=== PATIENT | female | born 1985 | race Caucasian/White ===

== ENCOUNTER 2021-09-11 13:01 | Emergency (ER) | payer BC ==
--- NOTE | 2021-09-11 14:46 | RAD REPORT ---
EXAM DESCRIPTION: RAD - Ankle Right 3 View - 09/11/2021 2:35 pm CLINICAL HISTORY: PAIN COMPARISON: None FINDINGS: Right ankle and right foot - multiple projections are submitted Mild soft tissue swelling is seen adjacent to the lateral malleolus. No acute fracture is seen. No fo ot fracture is evident.
--- NOTE | 2021-09-11 14:59 | EDPHYS ---
Physician Documentation [facility] Name: Ramona Dobbins Age: 35 yrs Sex: Female : 1985 Arrival Date: 09/11/2021 Time: 13:05 Bed 17 Private MD: ED Physician Erwin Vazquez HPI: 09/11 14:11 This 35 yrs old Female presents to ER via Wheelchair with complaints of Ankle rn Injury. 14:11 The patient presents with an injury, pain, that is acute. The complaints affect the rn right ankle. Onset: The symptoms/episode began/occurred yesterday. Associated signs and symptoms: Pertinent positives: swelling, Pertinent negatives: calf tenderness, fever, weakness. Modifying factors: The symptoms are alleviated by elevation of extremity, sitting, the symptoms are aggravated by weight bearing, movement. Severity of symptoms: At their worst the symptoms were moderate, in the emergency department the symptoms are unchanged. The patient has not experienced similar symptoms in the past. The patient has not recently seen a physician. Patient reports fall and right ankle injury yesterday. Does not remember details but basically was not wearing proper footwear and fell into a ditch while trying to check the mail. Reports main reason she came was right ankle injury and pain. Improved with elevation and resting affected extremity, worse with walking and movement.. 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 - Social history:: Smoking status: Patient denies any tobacco usage or history of. - Family history:: not pertinent. - Hospitalizations: : No recent hospitalization is reported. ROS: 14:11 Constitutional: Negative for fever, chills, and weight loss, Eyes: Negative for injury, rn pain, redness, and discharge, Neck: Negative for injury, pain, and swelling, Cardiovascular: Negative for chest pain, palpitations, and edema, Respiratory: Negative for shortness of breath, cough, wheezing, and pleuritic chest pain, Abdomen/GI: Negative for abdominal pain, nausea, vomiting, diarrhea, and constipation, Back: Negative for injury and pain, MS/Extremity: Positive for ankle injury and swelling Skin: Negative for injury, rash, and discoloration, Neuro: Negative for headache, weakness, numbness, tingling Exam: 14:11 Constitutional: This is a well developed, well nourished patient who is awake, alert, rn and in no acute distress. Head/Face: Normocephalic, atraumatic. Skin: No open wounds. MS/ Extremity: Pulses equal, no cyanosis. Neurovascular intact. Right lateral malleolus swelling and ecchymosis with tenderness. Swelling extends to mid right foot on lateral side. No open wounds. No tenderness of knee or proximal tib-fib. No tenderness of toes. Mild ecchymosis to right wrist but full range of motion. Neuro: Awake and alert, GCS 15 Vital Signs: 13:11 BP 119 / 63; Pulse 70; Resp 16; Temp 98.1; Pulse Ox 100% ; Weight 104.33 kg; Height 5 vg1 ft. 7 in. (170.18 cm); Pain 4/10; 13:38 BP 118 / 66; Pulse 74; Resp 18; Temp 98.2; Pulse Ox 99% ; sl2 14:30 BP 112 / 64; Pulse 72; Resp 18; Pulse Ox 100% ; sl2 15:30 BP 114 / 62; Pulse 74; Resp 18; Temp 98.4; Pulse Ox 100% ; sl2 13:11 Body Mass Index 36.02 (104.33 kg, 170.18 cm) vg1 MDM: 13:23 Patient medically screened. rn 14:57 Differential diagnosis: fracture, sprain. Data reviewed: vital signs, nurses notes, rn radiologic studies, plain films, and as a result, I will discharge patient. Test interpretation: by ED physician or midlevel provider: plain radiologic studies, X-ray right ankle negative for fracture or dislocation. Counseling: I had a detailed discussion with the patient and/or guardian regarding: the historical points, exam findings, and any diagnostic results supporting the discharge/admit diagnosis, radiology results, the need for outpatient follow up, to return to the emergency department if symptoms worsen or persist or if there are any questions or concerns that arise at home. Special discussion: I discussed with the patient/guardian in detail that at this point there is no indication for admission to the hospital. It is understood, however, that if the symptoms persist or worsen the patient needs to return immediately for re-evaluation. ED course: X-ray right ankle and foot negative for fracture or dislocation. 09/11 13:34 Order name: XRAY Ankle RIGHT 3 view; Complete Time: 14:57 rn 09/11 13:34 Order name: XRAY Foot RIGHT 3 View rn Administered Medications: No medications were administered Disposition Summary: 09/11/21 14:58 Discharge Ordered Location: Home rn Problem: new rn Symptoms: have improved rn Condition: Stable rn Diagnosis - Sprain of unspecified ligament of right ankle, initial encounter rn Followup: rn - With: Private Physician - When: As needed - Reason: Recheck today's complaints, Re-evaluation by your physician Discharge Instructions: - Discharge Summary Sheet rn - Ankle Sprain rn Forms: - Medication Reconciliation Form rn - Thank You Letter rn - Antibiotic title attorney - Prescription Opioid Use rn Signatures: Dispatcher [employer] Erwin Waller MD MD rn Garcia, Victoria RN RN vg1
--- NOTE | 2021-09-11 14:59 | ER ---
Nurse's Notes [facility] Name: Ramona Dobbins Age: 35 yrs Sex: Female : 1985 Arrival Date: 09/11/2021 Time: 13:05 Bed 17 Private MD: Diagnosis: Sprain of unspecified ligament of right ankle, initial encounter Presentation: 09/11 13:11 Chief complaint: Patient states: Last night pt was walking to mailbox and slipped and vg1 fell onto Right side. States Right shoulder, Rights wrist, Right knee and Right ankle pain. Right ankle appears to be swollen. Pt denies hitting head. Coronavirus screen: Vaccine status: Patient reports being unvaccinated. Client denies travel out of the [place] in the last 14 days. Ebola Screen: Patient negative for fever greater than or equal to 101.5 degrees Fahrenheit, and additional compatible Ebola Virus Disease symptoms. Initial Sepsis Screen: Does the patient meet any 2 criteria? No. Patient's initial sepsis screen is negative. Does the patient have a suspected source of infection? No. Patient's initial sepsis screen is negative. Risk Assessment: Do you want to hurt yourself or someone else? Patient reports no desire to harm self or others. Onset of symptoms was September 10, 2021. 13:11 Method Of Arrival: Wheelchair vg1 13:11 Acuity: ADENIKE 4 vg1 Triage Assessment: 13:17 General: Appears in no apparent distress. uncomfortable, Behavior is calm, cooperative. vg1 Pain: Complains of pain in Right shoulder, Right wrist, Right knee, and Right ankle Pain currently is 4 out of 10 on a pain scale. Musculoskeletal: Circulation, motion, and sensation intact. Swelling present in right foot. 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 - Social history:: Smoking status: Patient denies any tobacco usage or history of. - Family history:: not pertinent. - Hospitalizations: : No recent hospitalization is reported. Screenin:38 Abuse screen: Denies threats or abuse. Denies injuries from another. Nutritional sl2 screening: No deficits noted. Tuberculosis screening: No symptoms or risk factors identified. Fall Risk Fall in past 12 months (25 points). No secondary diagnosis (0 pts). No IV (0 pts). Ambulatory Aid- None/Bed Rest/Nurse Assist (0 pts). Gait- Normal/Bed Rest/Wheelchair (0 pts) Mental Status- Oriented to own ability (0 pts). Assessment: 13:29 General: Appears uncomfortable, slender, well groomed, well developed, Behavior is sl2 calm, cooperative, appropriate for age, Reports. Pain: Complains of pain in right foot Pain currently is 5 out of 10 on a pain scale. at worst was 10 out of 10 on a pain scale. Quality of pain is described as aching, Pain began suddenly, Is continuous, Alleviated by rest, Aggravated by increased activity, repositioning, weight bearing. Pain: Complains of pain in Right shoulder, right wrist, right knee, right ankle. Neuro: No deficits noted. Level of Consciousness is awake, alert, obeys commands, Oriented to person, place, time, situation, Appropriate for age Continuous Drier Operator are equal bilaterally Moves all extremities. Full function. Neuro: Gait is limping secondary to right ankle injury. Speech is normal. Cardiovascular: No deficits noted. Respiratory: No deficits noted. Airway is patent Trachea midline Respiratory effort is even, unlabored, Respiratory pattern is regular, symmetrical. GI: No deficits noted. No signs and/or symptoms were reported involving the gastrointestinal system. : No deficits noted. No signs and/or symptoms were reported regarding the genitourinary system. EENT: No deficits noted. No signs and/or symptoms were reported regarding the EENT system. Derm: No deficits noted. No signs and/or symptoms reported regarding the dermatologic system. Musculoskeletal: Swelling present in right ankle Reports Pain right upper and lower extremities in the areas of the shoulder, wrist, knee and ankle. Vital Signs: 13:11 BP 119 / 63; Pulse 70; Resp 16; Temp 98.1; Pulse Ox 100% ; Weight 104.33 kg; Height 5 vg1 ft. 7 in. (170.18 cm); Pain 4/10; 13:38 BP 118 / 66; Pulse 74; Resp 18; Temp 98.2; Pulse Ox 99% ; sl2 14:30 BP 112 / 64; Pulse 72; Resp 18; Pulse Ox 100% ; sl2 15:30 BP 114 / 62; Pulse 74; Resp 18; Temp 98.4; Pulse Ox 100% ; sl2 13:11 Body Mass Index 36.02 (104.33 kg, 170.18 cm) vg1 ED Course: 13:05 Patient arrived in ED. mr 13:05 Lorenzo Lee PA is PHCP. [facility] 13:06 Erwin Vazquez MD is Attending Physician. [facility] 13:15 Triage completed. vg1 13:17 Arm band placed on. vg1 13:24 Chelsea Soto, ROSALIND is Primary Nurse. sl2 13:38 Patient has correct armband on for positive identification. sl2 13:38 No provider procedures requiring assistance completed. Patient did not have IV access sl2 during this emergency room visit. 14:35 XRAY Ankle RIGHT 3 view In Process Unspecified. EDMS 14:35 XRAY Foot RIGHT 3 View In Process Unspecified. EDMS Administered Medications: No medications were administered Outcome: 14:58 Discharge ordered by . rn 15:43 Discharged to home via wheelchair, with family. sl2 15:43 Condition: stable 15:43 Discharge instructions given to patient, Instructed on discharge instructions, follow up and referral plans. medication usage, Demonstrated understanding of instructions, follow-up care, medications. 15:44 Patient left the ED. sl2 Signatures: Dispatcher [employer] EDMS Lorenzo Lee PA PA peggy GuerreroaMadelaine mr Erwin Vazquez MD MD rn Garcia, Victoria RN RN [facility] Chelsea Soto, ROSALIND RN sl2
[2021-09-11 16:00] VITALS: BP 118/66; TEMP 98.2; O2SAT 99
== END 2021-09-11 15:44 | disposition home or self-care (01) ==
LOC: ER 13:01
DX: S93.401A Sprain of unspecified ligament of right ankle, initial encounter (principal); W19.XXXA Unspecified fall, initial encounter; Y93.89 Activity, other specified; Z88.0 Allergy status to penicillin; Z88.5 Allergy status to narcotic agent; Z91.040 Latex allergy status
CPT/HCPCS: 99283

== ENCOUNTER 2023-02-15 13:12 | Emergency (ER) | payer BC ==
[2023-02-15 14:11] LABS: Specific Gravity 1.025 (1.005-1.030)
[2023-02-15 14:14] LABS: Specific Gravity 1.011 (1.005-1.030); Urine Bacteria None Seen /HPF (<20); Urine Bilirubin NEGATIVE (Negative); Urine Blood Negative (Negative); Urine Clarity Extremely Turbid (Clear); Urine Color Light-Orange (Yellow); Urine Glucose NEGATIVE (Negative); Urine Mucus Slight /HPF (None Seen); Urine Protein NEGATIVE (Negative); Urine Urobilinogen Normal (Normal)
--- NOTE | 2023-02-15 14:30 | RAD REPORT ---
EXAM DESCRIPTION: CTStone Protocol - 02/15/2023 2:18 pm CLINICAL HISTORY: KIDNEY STONES COMPARISON: Abdomen Pelvis W Contrast dated 01/17/2018 TECHNIQUE: CT of the abdomen and pelvis was performed. All CT scans are performed using dose optimization technique as appropriate and may include automated exposure control or mA/KV adjustment according to patient size. FINDINGS: Lower chest: No acute abnormality. Liver: No acute abnormality or suspicious lesions. Biliary: Cholecystectomy. Stomach: No significant focal abnormality. Duodenum: No significant focal abnormality. Pancreas: No significant abnormality. Spleen: No significant abnormality. Adrenal: No suspicious lesions. Kidney/ureter: No hydronephrosis. Punctate bilateral renal calculi. No ureteral calculi identified. Retroperitoneum: No retroperitoneal adenopathy. Vascular: No aneurysm. Bowel: No significant focal abnormality. Normal appendix Peritoneum: No ascites or free air. Small fat containing umbilical hernia. Bladder: Mild circumferential bladder wall thickening. Reproductive: No adnexal masses. Bones: No acute fracture. Other: n/a IMPRESSION: Nonobstructive bilateral nephrolithiasis. No ureteral calculi. Circumferential bladder w all thickening which could indicate cystitis. Normal appendix.
[2023-02-15] MEDS ORDERED: NA CHLORIDE 0.9% 1,000 ML ONE (14:34)
[2023-02-15] MEDS ORDERED: KETOROLAC 30 MG/ML INJ ONE (14:34)
[2023-02-15] MEDS ORDERED: ONDANSETRON 4 MG/2 ML VIAL ONE (14:34)
[2023-02-15 14:49] LABS: Absolute Lymphocytes (CBC) 2.5 K/uL (0.7-4.9); Hematocrit 39.4 % (36.0-45.0); Lymphocytes % 36.2 % (15.3-44.8); MCV 92.9 fL (80-100); RBC Red Blood Cell Count 4.24 M/uL (3.86-4.86)
[2023-02-15 15:09] LABS: Albumin 3.8 g/dL (3.4-5.0); Bilirubin Total 0.2 mg/dL (0.2-1.0); Potassium 3.3 mEq/L (3.5-5.1); Protein, Total 7.1 g/dL (6.4-8.2)
[2023-02-15] MEDS ORDERED: FENTANYL CITR 100 MCG/2 ML ONE (16:25)
--- NOTE | 2023-02-15 16:54 | EDPHYS ---
Physician Documentation [facility] Name: Ramona Dobbins Age: 37 yrs Sex: Female : 1985 Arrival Date: 02/15/2023 Time: 13:12 Bed 16 Private MD: ED Physician Erwin Vazquez HPI: 02/15 16:58 This 37 yrs old Female presents to ER via Ambulatory with complaints of Low Back Pain. kb 16:59 The patient complains of pain in the right flank. The pain does not radiate. Onset: The kb symptoms/episode began/occurred last week. Modifying factors: The symptoms are alleviated by nothing. the symptoms are aggravated by nothing. Associated signs and symptoms: Pertinent positives: nausea. Severity of pain: At its worst the pain was moderate in the emergency department the pain is unchanged. The patient has experienced similar episodes in the past, several times. The patient has not recently seen a physician. 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 - Social history:: Smoking status: Patient denies any tobacco usage or history of. ROS: 16:57 Constitutional: Negative for fever, chills, and weight loss. kb 16:57 Back: Positive for flank pain, on the right. kb 16:57 All other systems are negative. Exam: 16:57 Constitutional: This is a well developed, well nourished patient who is awake, alert, kb and in no acute distress. Head/Face: Normocephalic, atraumatic. ENT: Moist Mucous membranes Cardiovascular: Regular rate and rhythm with a normal S1 and S2. No gallops, murmurs, or rubs. No pulse deficits. Respiratory: Respirations even and unlabored. No increased work of breathing. Talking in full sentences Abdomen/GI: Soft, non-tender. No distention Skin: Warm, dry with normal turgor. Normal color. MS/ Extremity: Pulses equal, no cyanosis. Neurovascular intact. Full, normal range of motion. Neuro: Awake and alert, GCS 15, oriented to person, place, time, and situation. Moves all extremities. Normal gait. 16:57 Back: pain, that is mild, that is moderate, of the right low back. Vital Signs: 13:36 BP 129 / 83; Pulse 75; Resp 17; Temp 98.9; Pulse Ox 100% ; Weight 93.89 kg; Height 5 ap3 ft. 7 in. ; Pain 6/10; 15:25 BP 115 / 63; Pulse 54; Resp 16 S; Pulse Ox 99% on R/A; kc6 16:10 BP 121 / 61; kc6 13:36 Body Mass Index 32.42 (93.89 kg, 170.18 cm) ap3 13:36 Pain Scale: Adult ap3 MDM: 13:37 Patient medically screened. kb 16:58 Differential diagnosis: strain, fracture, sciatica, UTI, kidney stone. Data reviewed: kb vital signs, nurses notes. Counseling: I had a detailed discussion with the patient and/or guardian regarding: the historical points, exam findings, and any diagnostic results supporting the discharge/admit diagnosis, lab results, radiology results, the need for outpatient follow up, a family practitioner, a urologist, to return to the emergency department if symptoms worsen or persist or if there are any questions or concerns that arise at home. 02/15 13:37 Order name: Test, Urine; Complete Time: 14:15 kb 02/15 13:37 Order name: Urinalysis w/ reflexes; Complete Time: 14:15 kb 02/15 14:08 Order name: CBC with Diff; Complete Time: 14:53 kb 02/15 14:08 Order name: CMP; Complete Time: 15:11 kb 02/15 14:08 Order name: Lipase; Complete Time: 15:11 kb 02/15 14:08 Order name: CT Stone Protocol; Complete Time: 14:31 kb 02/15 14:08 Order name: IV Saline Lock; Complete Time: 14:45 kb 02/15 14:08 Order name: Labs collected and sent; Complete Time: 14:45 kb Administered Medications: 14:45 Drug: NS 0.9% IV 1000 ml Route: IV; Rate: 1 bolus; Site: left antecubital; kc6 16:17 Follow up: Response: No adverse reaction; IV Status: Completed infusion; IV Intake: kc6 1000ml 14:45 Drug: TORadol - Ketorolac IVP 15 mg Route: IVP; Site: left antecubital; kc6 16:17 Follow up: Response: No adverse reaction; Pain is unchanged, physician notified kc6 14:45 Drug: Ondansetron IVP 4 mg Route: IVP; Site: left antecubital; kc6 16:17 Follow up: Response: No adverse reaction kc6 16:26 Drug: fentaNYL (PF) IVP 25 mcg Route: IVP; Site: left antecubital; kc6 Disposition: 18:14 Co-signature as Attending Physician, Erwin Vazquez MD I reviewed the patient's care rn provided by the Advanced Practice Provider and agree with the diagnosis and treatment plan. Disposition Summary: 02/15/23 16:53 Discharge Ordered Location: Home kb Condition: Stable kb Diagnosis - Low back pain kb Followup: kb - With: Emergency Department - When: As needed - Reason: Worsening of condition Followup: kb - With: Private Physician - When: 2 - 3 days - Reason: Recheck today's complaints, Continuance of care, Re-evaluation by your physician Discharge Instructions: - Discharge Summary Sheet kb - Musculoskeletal Pain kb - Kidney Stones, [id number] kb - Abdominal Pain, Adult, [id number] kb Forms: - Medication Reconciliation Form kb - Thank You Letter kb - Antibiotic Education kb - Prescription Opioid Use kb Prescriptions: - ondansetron 4 mg Oral Tablet,disintegrating - take 1 tablet by ORAL route every 6 hours As needed as needed for nausea and kb vomiting; 10 tablet; Refills: 0, Product Selection Permitted - Diclofenac Sodium 75 mg Oral tablet,delayed release (DR/EC) - take 1 tablet by ORAL route 2 times per day As needed; 30 tablet; Refills: 0, kb Product Selection Permitted Signatures: Dispatcher [employer] Virginia Rushing, MAKENNA BARAJAS-Erwin Krause MD MD rn Prokisch, Amanda, RN RN ap3 Erinn Christopher RN RN kc6
--- NOTE | 2023-02-15 16:54 | ER ---
Nurse's Notes [facility] Name: Ramona Dobbins Age: 37 yrs Sex: Female : 1985 Arrival Date: 02/15/2023 Time: 13:12 Bed 16 Private MD: Diagnosis: Low back pain Presentation: 02/15 13:36 Chief complaint: Patient states: she is having right lower flank pain since last week. ap3 patient reports her pain as a 6/10 on the pain scale. Coronavirus screen: At this time, the client does not indicate any symptoms associated with coronavirus-19. Ebola Screen: No symptoms or risks identified at this time. Initial Sepsis Screen: Does the patient meet any 2 criteria? No. Patient's initial sepsis screen is negative. Does the patient have a suspected source of infection? No. Patient's initial sepsis screen is negative. Risk Assessment: Do you want to hurt yourself or someone else? Patient reports no desire to harm self or others. Onset of symptoms was February 08, 2023. 13:36 Method Of Arrival: Ambulatory ap3 13:36 Acuity: ADENIKE 3 ap3 Triage Assessment: 13:38 General: Appears in no apparent distress. Behavior is calm, cooperative, appropriate ap3 for age. Pain: Complains of pain in right low back Pain currently is 6 out of 10 on a pain scale. Pain began gradually, over the last week. Neuro: Level of Consciousness is awake, alert, obeys commands, Oriented to person, place, time, situation. Cardiovascular: Patient's skin is warm and dry. Respiratory: Airway is patent Respiratory effort is even, unlabored, Respiratory pattern is regular, symmetrical. : Reports pain in right flank(s). 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 - Social history:: Smoking status: Patient denies any tobacco usage or history of. Screenin:39 [facility] ED Fall Risk Assessment (Adult) History of falling in the last 3 months, ap3 including since admission No falls in past 3 months (0 pts). Abuse screen: Denies threats or abuse. Nutritional screening: No deficits noted. Tuberculosis screening: No symptoms or risk factors identified. Assessment: 14:01 General: Appears in no apparent distress. comfortable, Behavior is calm, cooperative, kc6 appropriate for age. Pain: Complains of pain in right low back. Neuro: Frey Agitation-Sedation Scale (RASS): 0 - Alert and Calm Level of Consciousness is awake, alert, obeys commands, Oriented to person, place, time, situation, Appropriate for age. Cardiovascular: Capillary refill < 3 seconds. Respiratory: Airway is patent Trachea midline Respiratory effort is even, unlabored, Respiratory pattern is regular, symmetrical. GI: No signs and/or symptoms were reported involving the gastrointestinal system. : Urine is clear, cloudy. EENT: No signs and/or symptoms were reported regarding the EENT system. Derm: No signs and/or symptoms reported regarding the dermatologic system. Skin is intact, Skin is pink, warm \T\ dry. Musculoskeletal: No signs and/or symptoms reported regarding the musculoskeletal system. Circulation, motion, and sensation intact. Capillary refill < 3 seconds, Range of motion: intact in all extremities. 15:01 Reassessment: Patient appears in no apparent distress at this time. No changes from kc6 previously documented assessment. Patient and/or family updated on plan of care and expected duration. Pain level reassessed. Patient is alert, oriented x 3, equal unlabored respirations, skin warm/dry/pink. 16:01 Reassessment: Patient appears in no apparent distress at this time. No changes from kc6 previously documented assessment. Patient and/or family updated on plan of care and expected duration. Pain level reassessed. Patient is alert, oriented x 3, equal unlabored respirations, skin warm/dry/pink. Vital Signs: 13:36 BP 129 / 83; Pulse 75; Resp 17; Temp 98.9; Pulse Ox 100% ; Weight 93.89 kg; Height 5 ap3 ft. 7 in. ; Pain 6/10; 15:25 BP 115 / 63; Pulse 54; Resp 16 S; Pulse Ox 99% on R/A; kc6 16:10 BP 121 / 61; kc6 13:36 Body Mass Index 32.42 (93.89 kg, 170.18 cm) ap3 13:36 Pain Scale: Adult ap3 ED Course: 13:15 Patient arrived in ED. rg4 13:22 Virginia Shen [facility] kb 13:22 Erwin Vazquez MD is Attending Physician. kb 13:38 Triage completed. ap3 13:39 Arm band placed on right wrist. ap3 13:43 Erinn Christopher, RN is Primary Nurse. kc6 14:01 Patient has correct armband on for positive identification. Bed in low position. Call kc6 light in reach. Side rails up X 1. 14:20 CT Stone Protocol In Process Unspecified. EDMS Administered Medications: 14:45 Drug: NS 0.9% IV 1000 ml Route: IV; Rate: 1 bolus; Site: left antecubital; kc6 16:17 Follow up: Response: No adverse reaction; IV Status: Completed infusion; IV Intake: kc6 1000ml 14:45 Drug: TORadol - Ketorolac IVP 15 mg Route: IVP; Site: left antecubital; kc6 16:17 Follow up: Response: No adverse reaction; Pain is unchanged, physician notified kc6 14:45 Drug: Ondansetron IVP 4 mg Route: IVP; Site: left antecubital; kc6 16:17 Follow up: Response: No adverse reaction kc6 16:26 Drug: fentaNYL (PF) IVP 25 mcg Route: IVP; Site: left antecubital; kc6 Intake: 16:17 IV: 1000ml; Total: 1000ml. kc6 Outcome: 16:53 Discharge ordered by MD. kb 17:18 Patient left the ED. kc6 Signatures: Dispatcher [employer] EDMS Virginia Shen FNP-C FNP-Bernadette Luna rg4 Jocelyn Syed RN RN ap3 Erinn Christopher, ROSALIND RN kc6
[2023-02-15 17:23] VITALS: TEMP 98.9
[2023-02-15 17:25] VITALS: O2SAT 99
[2023-02-15 17:26] VITALS: BP 121/61
== END 2023-02-15 17:18 | disposition home or self-care (01) ==
LOC: ER 13:12
DX: M54.50 Low back pain, unspecified (principal); Z88.0 Allergy status to penicillin; Z88.5 Allergy status to narcotic agent; Z91.040 Latex allergy status; Z91.048 Other nonmedicinal substance allergy status
CPT/HCPCS: 96361; 85025; 81001; 36415; 81025; 83690; 80053; 76377; 74176; 96375; 96374; 99284; J3010; J2405; J7030

== ENCOUNTER 2024-11-26 22:02 | Emergency (ER) | payer BC ==
[2024-11-26] MEDS ORDERED: ONDANSETRON 4 MG/2 ML VIAL ONE (23:38)
[2024-11-26] MEDS ORDERED: KETOROLAC 30 MG/ML INJ ONE (23:38)
[2024-11-26] MEDS ORDERED: NA CHLORIDE 0.9% 1,000 ML ONE (23:39)
[2024-11-26 23:45] LABS: Absolute Basophils 0.1 K/uL (0-0.5); Absolute Eosinophils 0.6 K/uL (0-0.5); Absolute Monocytes 0.5 K/uL (0.1-1.3); Absolute Neutrophil 3.2 K/uL (1.8-8.0); Eosinophils % 7.8 % (0-4.4); Hematocrit 38.4 % (36.0-45.0); Lymphocytes % 41.1 % (15.3-44.8); MCHC 33.9 g/dL (32.0-36.0); MCV 88.4 fL (80-100); MPV 8.5 fL (7.6-11.3); Monocytes % 7.1 % (3.3-12.3); Nucleated Red Blood Cells % 0.1 % (0-0); Platelets 324 thou/uL (152-406); RBC Red Blood Cell Count 4.35 M/uL (3.86-4.86); Red Cell Distribution Width 14.7 % (12.1-15.2)
[2024-11-26 23:47] LABS: Specific Gravity 1.009 (1.005-1.030)
[2024-11-26 23:51] LABS: Specific Gravity 1.009 (1.005-1.030); Sqamous Epithelial <5 /HPF (None Seen); Urine Bacteria <20 /HPF (<20); Urine Bilirubin NEGATIVE (Negative); Urine Blood Negative (Negative); Urine Clarity Turbid (Clear); Urine Color Colorless (Yellow); Urine Crystals Unidentified Few /HPF (None Seen); Urine Culture Reflex Order NOT NEEDED; Urine Glucose NEGATIVE (Negative); Urine Ketones NEGATIVE (Negative); Urine Microscopic Reflex YN ORDER UMIC; Urine Nitrite NEGATIVE (Negative); Urine Protein NEGATIVE (Negative); Urine RBC <5 /HPF (None Seen); Urine Urobilinogen Normal (Normal); Urine WBC <5 /HPF (<5)
[2024-11-27] LABS: Albumin 3.6 g/dL (3.4-5.0); Albumin/Globulin Ratio 1.1 (1.1-1.8); Anion Gap 6.4 mEq/L (5.0-15.0); Bilirubin Total 0.2 mg/dL (0.2-1.0); Globulin 3.4 g/dL (2.3-3.5); Potassium 3.4 mEq/L (3.5-5.1)
--- NOTE | 2024-11-27 02:30 | RAD REPORT ---
EXAM: CT Abdomen and Pelvis Without Intravenous Contrast CLINICAL HISTORY: The patient is 38 years old and is Female; FLANK PAIN TECHNIQUE: Axial computed tomography images of the abdomen and pelvis without intravenous contrast. Sagittal and coronal reformatted images were created and reviewed. This CT exam was performed using one or more of the following dose reduction techniques: automated exposure control, adjustment of the m A and/or kV according to patient size, and/or use of iterative reconstruction technique. COMPARISON: February 15, 2023. FINDINGS: LUNG BASES: Unremarkable. No mass. No consolidation. ABDOMEN: LIVER: Homogeneous without focal mass. GALLBLADDER AND BILE DUCTS: Surgical clips are present in the right upper quadrant, consistent wi th previous cholecystectomy. PANCREAS: Unremarkable. No ductal dilation. SPLEEN: Unremarkable. ADRENALS: Unremarkable. No mass. KIDNEYS AND URETERS: Punctate right intrarenal calcification is present. Punctate left intrarenal calcification is present. There is no hydronephrosis or hydroureter of either kidney. No obstructing renal or ureteral calculus is seen. STOMACH AND BOWEL: The stomach is distended with food contents. The small bowel is normal in thor alonso. Stool is present throughout the colon. There is no mucosal thickening or evidence of obstruction. PELVIS: APPENDIX: The appendix is normal in caliber without surrounding inflammation. BLADDER: The bladder is well distended. No stones. REPRODUCTIVE: Unremarkable as visualized. ABDOMEN and PELVIS: INTRAPERITONEAL SPACE: Unremarkable. No free air. No significant fluid collection. BONES/JOINTS: No acute fracture. SOFT TISSUES: The soft tissues are normal. VASCULATURE: Unremarkable. No abdominal aortic aneurysm. LYMPH NODES: Unremarkable. No enlarged lymph nodes. IMPRESSION: Bilateral nephrolithiasis without obstruction. Electronically signed by: Heather Herrera MD 11/27/2024 02:16 AM [facility] Due to temporary technical issues with the PACS/Lingoing reporting system, reports are being monica d by the in-house radiologist without review as a courtesy to ensure prompt reporting the interpreting radiologist is fully responsible for the content of the report. Transcribed Date/Time: 11/27/2024 2:30 AM
--- NOTE | 2024-11-27 02:35 | EDPHYS ---
Physician Documentation [facility] Name: Ramona Dobbins Age: 38 yrs Sex: Female : 1985 Arrival Date: 11/26/2024 Time: 22:02 Bed DX1 Private MD: ED Physician Jarred Ga HPI: 11/26 22:13 This 38 yrs old Female presents to ER via Unassigned with complaints of Urinary kb Retention, Low Back Pain. 22:13 Pt is a 38 year old female who presents for left flank pain that started 5 days ago and kb got worse yesterday. Reports history of kidney stones and this feels similar. Reports decreased urination and pain with urination. Denies fever, nausea, vomiting. 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 - Infectious Disease History:: Denies. - Social history:: Smoking status: Patient denies any tobacco usage or history of. Patient/guardian denies using alcohol, street drugs. ROS: 22:15 Constitutional: As per HPI kb Exam: 22:15 Constitutional: This is a well developed, well nourished patient who is awake, alert, kb and in no acute distress. Head/Face: Normocephalic, atraumatic. ENT: Moist Mucous membranes Cardiovascular: Regular rate Respiratory: Respirations even and unlabored. No increased work of breathing. Talking in full sentences Skin: Warm, dry with normal turgor. Normal color. MS/ Extremity: Pulses equal, no cyanosis. Neurovascular intact. Full, normal range of motion. Neuro: Awake and alert, GCS 15, oriented to person, place, time, and situation. 22:15 Abdomen/GI: Inspection: abdomen appears normal, Palpation: soft, in all quadrants, mild abdominal tenderness, in the left upper quadrant, 22:15 Back: CVA tenderness, that is mild, is noted on the right, 22:16 Back: CVA tenderness, that is moderate, is noted on the left, kb Vital Signs: 22:22 BP 124 / 90; Pulse 80; Resp 17 S; Temp 97.5(O); Pulse Ox 99% on R/A; Weight 90.72 kg lg3 (R); Height 5 ft. 7 in. (R); Pain 4/10; 11/27 02:37 BP 145 / 100; Pulse 60; Resp 15; Temp 98; Pulse Ox 100% ; rk3 11/26 22:22 Body Mass Index 31.32 (90.72 kg, 170.18 cm) lg3 11/26 22:22 Pain Scale: Adult lg3 MDM: 11/26 22:10 Medical Screening Exam initiated kb 11/27 00:52 Data reviewed: vital signs, nurses notes. Transition of care: After a detail discussion kb of the patient's case, care is transferred to Jarred Ga MD. 02:24 ED course: COMPARISON: February 15, 2023. FINDINGS: LUNG BASES: Unremarkable. No mass. No sp4 consolidation. ABDOMEN: LIVER: Homogeneous without focal mass. GALLBLADDER AND BILE DUCTS: Surgical clips are present in the right upper quadrant, consistent with previous cholecystectomy. PANCREAS: Unremarkable. No ductal dilation. SPLEEN: Unremarkable. ADRENALS: Unremarkable. No mass. KIDNEYS AND URETERS: Punctate right intrarenal calcification is present. Punctate left intrarenal calcification is present. There is no hydronephrosis or hydroureter of either kidney. No obstructing renal or ureteral calculus is seen. STOMACH AND BOWEL: The stomach is distended with food contents. The small bowel is normal in caliber. Stool is present throughout the colon. There is no mucosal thickening or evidence of obstruction. PELVIS: APPENDIX: The appendix is normal in caliber without surrounding inflammation. BLADDER: The bladder is well distended. No stones. REPRODUCTIVE: Unremarkable as visualized. ABDOMEN and PELVIS: INTRAPERITONEAL SPACE: Unremarkable. No free air. No significant fluid collection. BONES/JOINTS: No acute fracture. SOFT TISSUES: The soft tissues are normal. VASCULATURE: Unremarkable. No abdominal aortic aneurysm. LYMPH NODES: Unremarkable. No enlarged lymph nodes. IMPRESSION: Bilateral nephrolithiasis without obstruction. Electronically signed by: Heather Herrera MD 11/27/2024 02:16 AM . 02:32 Differential diagnosis: arthritis, strain, Herniated disc UTI, Kidney Stone. sp4 Consideration of Admission/Observation Escalation of care including admission/observation considered. ED course: CT reveals punctate nephrolithiasis without active ureteral stone. We have explained the patient in details no sign of acute kidney injury no sign of acute ureterolithiasis. Patient is stable for discharge home with as needed Naprosyn and Robaxin. . 11/26 22:18 Order name: CBC with Diff; Complete Time: 00:13 kb 11/26 22:18 Order name: CMP; Complete Time: 00:13 kb 11/26 22:18 Order name: Lipase; Complete Time: 00:13 kb 11/26 22:18 Order name: Test, Urine; Complete Time: 00:13 kb 11/26 22:18 Order name: Urinalysis w/ reflexes; Complete Time: 00:13 kb 11/26 22:18 Order name: CT Stone Protocol kb 11/26 22:18 Order name: IV Saline Lock; Complete Time: 23:18 kb 11/26 22:18 Order name: Labs collected and sent; Complete Time: 23:18 kb Administered Medications: 11/26 23:50 Drug: TORadol - Ketorolac IVP 15 mg IVP once Route: IVP; Site: left antecubital; lg3 11/27 02:22 Follow up: Response: No adverse reaction; Marked relief of symptoms lg3 11/26 23:50 Drug: Ondansetron IVP 4 mg IVP once; over 2 minutes Route: IVP; Site: left antecubital; lg3 11/27 02:22 Follow up: Response: No adverse reaction 3 11/26 23:50 Drug: NS 0.9% IV 1000 ml IV at 1 bolus Per protocol; to be given as a bolus over 60 lg3 minutes Route: IV; Rate: 1 bolus; Site: left antecubital; 11/27 02:22 Follow up: Response: No adverse reaction; IV Status: Completed infusion; IV Intake: lg3 1000ml Disposition: 21:49 Co-signature as Attending Physician, Jarred Ga MD I agree with the assessment sp4 and plan of care. I reviewed the patient's care provided by Advanced Practice Provider \T\ agree w/ the diagnosis \T\ care plan. I personally saw the pt \T\ performed a substantive portion of the visit, incldng all aspects of the (History/Exam/Medical Decision Making). Disposition Summary: 11/27/24 02:35 Discharge Ordered Notes: Location: Home sp4 Problem: new sp4 Symptoms: have improved sp4 Condition: Stable sp4 Diagnosis - Acute left lower back pain, acute UTI, sp4 Followup: sp4 - With: Private Physician - When: 7 - 10 days - Reason: Recheck today's complaints Discharge Instructions: - Discharge Summary Sheet sp4 - Urinary Tract Infection, Adult, [id number] sp4 Forms: - Patient Portal Instructions sp4 Prescriptions: - naproxen 500 mg Oral tablet - take 1 tablet ORAL route every 12 hours as needed for pain; 50 tablet; Refills: sp4 0, Product Selection Permitted - Cephalexin 250 mg Oral Capsule - take 1 capsule ORAL route every 12 hours for 10 days; 20 capsule; Refills: 0, sp4 Product Selection Permitted - methocarbamol 750 mg Oral tablet - take 1 tablet ORAL route 4 times per day for 2 days PRN back pain; 60 tablet; sp4 Refills: 0, Product Selection Permitted Signatures: Dispatcher [employer] Virginia Rushing, WEB CONSULTANT-C WEB CONSULTANT-Michelle Bhardwaj RN RN lg3 Jarred Ga MD MD sp4 Corrections: (The following items were deleted from the chart) 11/26 22:18 22:18 Stone Protocol+CT.RAD.BRZ ordered. PARVEENVT PARVEENVT 22:24 22:23 Home Meds: Remicade Infusions; lg3 lg3
--- NOTE | 2024-11-27 02:35 | ER ---
Nurse's Notes [facility] Name: Ramona Dobbins Age: 38 yrs Sex: Female : 1985 Arrival Date: 11/26/2024 Time: 22:02 Bed DX1 Private MD: Diagnosis: Acute left lower back pain, acute UTI, Presentation: 11/26 22:22 Chief complaint: Patient states: my kidneys hurt. onset monday. Coronavirus screen: lg3 Client denies travel out of the [place] in the last 14 days. At this time, the client does not indicate any symptoms associated with coronavirus-19. Ebola Screen: No symptoms or risks identified at this time. Initial Sepsis Screen: Does the patient meet any 2 criteria? No. Patient's initial sepsis screen is negative. Does the patient have a suspected source of infection? No. Patient's initial sepsis screen is negative. Risk Assessment: Do you want to hurt yourself or someone else? Patient reports no desire to harm self or others. Onset of symptoms was November 21, 2024. 22:22 Method Of Arrival: Ambulatory lg3 22:22 Acuity: ADENIKE 3 lg3 Triage Assessment: 22:23 General: Appears in no apparent distress. uncomfortable, Behavior is calm, cooperative. lg3 Pain: Complains of pain in back. EENT: No deficits noted. No signs and/or symptoms were reported regarding the EENT system. Neuro: No deficits noted. Frey Agitation-Sedation Scale (RASS): 0 - Alert and Calm Level of Consciousness is awake, alert, obeys commands, Oriented to person, place, time, situation. Cardiovascular: No deficits noted. Denies chest pain, shortness of breath, Capillary refill < 3 seconds Clubbing of nail beds is absent JVD is absent Patient's skin is warm and dry. Respiratory: No deficits noted. Airway is patent Respiratory effort is even, unlabored, Respiratory pattern is regular, symmetrical. GI: No deficits noted. No signs and/or symptoms were reported involving the gastrointestinal system. Abdomen is round non-distended. : Reports inability to void, pain in lower back. Derm: No deficits noted. No signs and/or symptoms reported regarding the dermatologic system. Skin is intact, is healthy with good turgor, Skin is dry, Skin is normal, Skin temperature is warm. Musculoskeletal: No deficits noted. Circulation, motion, and sensation intact. Range of motion: intact in all extremities. 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 - Infectious Disease History:: Denies. - Social history:: Smoking status: Patient denies any tobacco usage or history of. Patient/guardian denies using alcohol, street drugs. Screenin:26 [facility] ED Fall Risk Assessment (Adult) History of falling in the last 3 months, lg3 including since admission No falls in past 3 months (0 pts) Confusion or Disorientation No (0 pts) Intoxicated or Sedated No (0 pts) Impaired Gait No (0 pts) Mobility Assist Device Used No (0 pt) Altered Elimination No (0 pt) Score/Fall Risk Level 0 - 2 = Low Risk Oriented to surroundings, Maintained a safe environment, Educated pt \T\ family on fall prevention, incl call for assistance when getting out of bed, Assessed \T\ reinforced patient's understanding of fall precautions. Abuse screen: Denies threats or abuse. Denies injuries from another. Nutritional screening: No deficits noted. Tuberculosis screening: No symptoms or risk factors identified. Assessment: 22:26 General: see triage assessment. lg3 11/27 00:00 Reassessment: Patient appears in no apparent distress at this time. No changes from lg3 previously documented assessment. Patient and/or family updated on plan of care and expected duration. Pain level reassessed. Patient is alert, oriented x 3, equal unlabored respirations, skin warm/dry/pink. 02:21 Reassessment: Patient appears in no apparent distress at this time. No changes from lg3 previously documented assessment. Patient and/or family updated on plan of care and expected duration. Pain level reassessed. Patient is alert, oriented x 3, equal unlabored respirations, skin warm/dry/pink. Patient states symptoms have improved. Vital Signs: 11/26 22:22 BP 124 / 90; Pulse 80; Resp 17 S; Temp 97.5(O); Pulse Ox 99% on R/A; Weight 90.72 kg lg3 (R); Height 5 ft. 7 in. (R); Pain 4/10; 02 02:37 BP 145 / 100; Pulse 60; Resp 15; Temp 98; Pulse Ox 100% ; rk3 11/26 22:22 Body Mass Index 31.32 (90.72 kg, 170.18 cm) lg3 02 22:22 Pain Scale: Adult 3 ED Course: 11/26 22:05 Patient arrived in ED. jj6 22:09 Virginia Shen [facility]C [facility] kb 22:09 Jarred Ga MD is Attending Physician. kb 22:23 Triage completed. lg3 22:23 Arm band placed on right wrist. lg3 22:26 Patient taken to lobby, ambulatory, steady gait. lg3 22:26 Patient has correct armband on for positive identification. lg3 23:13 Inserted saline lock: 20 gauge in right antecubital area, using aseptic technique. rv1 Blood collected. Flushed with 10 mL NS. 23:13 Initial lab(s) drawn, by me, sent to lab. Urine collected: clean catch specimen, clear. rv1 23:18 CBC with Diff Sent. rv1 23:18 CMP Sent. rv1 23:18 Lipase Sent. rv1 23:18 Test, Urine Sent. rv1 23:18 Urinalysis w/ reflexes Sent. rv1 23:48 Inserted saline lock: 20 gauge in left antecubital area, using aseptic technique. rv1 Flushed with 10 mL NS. 11/27 00:38 CT Stone Protocol In Process Unspecified. EDMS 02:43 IV discontinued, bleeding controlled, No redness/swelling at site. Pressure dressing rk3 applied. 02:46 No provider procedures requiring assistance completed. lg3 Administered Medications: 11/26 23:50 Drug: TORadol - Ketorolac IVP 15 mg IVP once Route: IVP; Site: left antecubital; 3 11/27 02:22 Follow up: Response: No adverse reaction; Marked relief of symptoms 3 11/26 23:50 Drug: Ondansetron IVP 4 mg IVP once; over 2 minutes Route: IVP; Site: left antecubital; lg3 11/27 02:22 Follow up: Response: No adverse reaction lg3 11/26 23:50 Drug: NS 0.9% IV 1000 ml IV at 1 bolus Per protocol; to be given as a bolus over 60 lg3 minutes Route: IV; Rate: 1 bolus; Site: left antecubital; 11/27 02:22 Follow up: Response: No adverse reaction; IV Status: Completed infusion; IV Intake: lg3 1000ml Medication: 02:46 VIS not applicable for this client. lg3 Intake: 02:22 IV: 1000ml; Total: 1000ml. lg3 Outcome: 02:35 Discharge ordered by . sp4 02:46 Discharged to home ambulatory, lg3 02:46 Condition: stable 02:46 Discharge instructions given to patient, Instructed on discharge instructions, follow up and referral plans. medication usage, Demonstrated understanding of instructions, follow-up care, medications, Prescriptions given X 3, 02:47 Patient left the ED. lg3 Signatures: Dispatcher [employer] EDMS Virginia Shen, JENN-C SPECIAL SKILLS OFFICER-Michelle Bhardwaj RN RN lg3 Ramona Cowan6 Rosa Lazo rv1 Jarred Ga MD MD sp4 Elba Brown rk3 Corrections: (The following items were deleted from the chart) 11/26 22:24 22:23 Home Meds: Remicade Infusions; lg3 lg3 11/27 02:46 02:45 Reassessment: Patient appears in no apparent distress at this time. No changes lg3 from previously documented assessment. Patient and/or family updated on plan of care and expected duration. Pain level reassessed. Patient is alert, oriented x 3, equal unlabored respirations, skin warm/dry/pink. Patient states symptoms have improved. lg3
[2024-11-27 03:16] VITALS: BP 145/100; TEMP 98; O2SAT 100
== END 2024-11-27 02:47 | disposition home or self-care (01) ==
LOC: ER 22:02
DX: N39.0 Urinary tract infection, site not specified (principal)
CPT/HCPCS: 85025; 81001; 36415; 81025; 83690; 80053; 76377; 74176; J2405; J7030